=== PATIENT | male | born 1965 | race Caucasian/White ===

== ENCOUNTER → 2024-02-26 | Outpatient (CLI) | payer OTHER, SELFPAY ==
--- NOTE | 2024-02-26 09:18 | NM_ITS ---
CLINICAL: 58-year-old male with history of renal cell carcinoma. WHOLE BODY 99m Tc MDP RADIONUCLIDE BONE SCINTIGRAPHY COMPARISON: None available FINDINGS: Following the intravenous administration of 26.4 mCi of 99m Tc MDP, whole body bone images reveal: 1. Increased radiotracer distribution is defined in the acromioclavicular and sternoclavicular compartments of both shoulders, the posterior compartment of both ankles, the right forefoot involving the first metatarsal-phalangeal articulation, the right elbow, the medial tibial compartment of the right knee and apparent patellofemoral compartment of the left knee. 2. Enhanced uptake is noted in the left proximal femoral diaphysis, the distal right femoral diaphysis, the proximal-left mid tibial diaphysis likely representing previous trauma-fracture. Facilitated uptake is noted in the lateral femoral component of the visualized left knee arthroplasty. 3. The remaining skeletal structures are scintigraphically unremarkable with normal-appearing renal images and urinary bladder activity identified. NM/Bone Scan Whole Body IMPRESSION: 1. The increase in tracer uptake defined in the bilateral shoulder and ankle articulations, the right forefoot, the right elbow, the medial tibial compartment of the right knee and patellofemoral compartment of the left knee (in the absence of apparent orthopedic hardware placement) is most consistent with degenerative arthritis. 2. Facilitated radiopharmaceutical distribution defined in the left proximal and right distal femoral diaphysis, the left proximal-mid tibial diaphysis likely represents previous trauma-fracture. Plain film radiography correlation may be of benefit. 3. There is no definitive scintigraphic evidence of diffuse axial skeletal metastatic disease on the present examination. Electronically Signed: Thee Torrez DO at 9:20 EDT ,
== END | disposition home or self-care (01) ==
LOC: NM 09:14
PROVIDERS: PCP Registered Nurse; Referring Provider Internal Medicine Hematology & Oncology; Visit Provider Internal Medicine Hematology & Oncology
DX: N28.89 Other specified disorders of kidney and ureter (principal)
CPT/HCPCS: 78306; A9503

== ENCOUNTER → 2024-02-28 | Outpatient (CLI) | payer OTHER, SELFPAY ==
--- NOTE | 2024-02-28 08:23 | CT_ITS ---
STUDY: CT CHEST, ABDOMEN T PELVIS WITH CONTRAST REASON FOR EXAM: Male, 58 years old. STAGING KIDNEY CANCER IV CONTRAST ONLY RADIATION DOSAGE (If Supplied By Facility): CTDIvol = ( 23.93 ) mGy, DLP = ( 2617.34 ) mGycm TECHNIQUE: Transaxial imaging was performed following intravenous administration of IV 100mL Isovue-370. Multiplanar coronal and sagittal images were reformatted. Individualized dose optimization techniques were used for this CT. COMPARISON: Comparison is made with prior outside CT scan abdomen and pelvis dated February 05, 2024. FINDINGS: CHEST There is a 2.6 mm noncalcified nodule in the peripheral lateral aspect of the left lower lobe as seen on axial image #97. There is no demonstrated pleural abnormality. Sternal cerclage wires and vascular clips are present from a prior sternotomy and coronary artery bypass graft procedure (CABG). Coronary artery calcification. Normal mediastinum. Normal hilar regions. Normal unenhanced pulmonary arteries. Normal aorta arch and descending thoracic aorta. There are multi-level degenerative changes of the thoracic spine. ABDOMEN There is decreased attenuation of the liver consistent with steatosis. Mild hepatomegaly. Normal gallbladder and extrahepatic biliary system. Borderline splenomegaly. Normal pancreas. Normal bilateral adrenal glands. There is a 10.1 cm x 8.8 cm x 8.5 cm cyst in the upper pole of the right kidney. This also evidence of a 8.7 cm x 6.9 similar cyst in the lateral inferior pole of the right kidney. There is a nonobstructive 9.4 mm calculus in the midpole calyx of the right kidney as well as a 4 mm calculus in the lower pole calyx of the right kidney. There is a 3.5 cm x 3.6 cm x 3.1 cm heterogeneous enhancing mass in the anterior upper midportion of the left kidney. Nonobstructive calculus in the lower pole of the left kidney measuring 8.4 mm. Normal visualized stomach. Normal small intestine. There are scattered colonic diverticula consistent with diverticulosis. The appendix is visualized and appears normal. There is scattered atherosclerotic calcification of the abdominal aorta, without a demonstrated aneurysm. Normal inferior vena cava. Normal retroperitoneum. Normal abdominal wall. There are mild degenerative changes of the visualized lumbar spine. PELVIS Normal urinary bladder. Prostatic enlargement with calcification. The prostate measures 4.3 cm x 5.5 cm. This causes indentation of the bladder base. Prostatic calcifications are seen. Normal visualized small intestine. Normal visualized colon. There is no pelvic fluid. There is no pelvic lymphadenopathy or mass lesion. Normal visualized pelvic arteries. CT/CT Chest, Abd, Pel w/Contrast IMPRESSION: Mild hepatomegaly and fatty infiltration of the liver. Bilateral renal cysts and nonobstructive intrarenal calculi. 3.5 cm x 3.6 x 3.1 cm heterogeneous enhancing mass in the anterior midportion of the left kidney suggestive of a neoplastic process. Electronically Signed: Yaniv Valdivia MD at 12:38 EDT ,
== END | disposition home or self-care (01) ==
LOC: CT 08:22
PROVIDERS: PCP Registered Nurse; Referring Provider Internal Medicine Hematology & Oncology; Visit Provider Internal Medicine Hematology & Oncology
DX: N28.89 Other specified disorders of kidney and ureter (principal)
CPT/HCPCS: 71260; 74177; Q9967

== ENCOUNTER → 2024-12-31 | Outpatient (CLI) | payer OTHER, SELFPAY ==
--- NOTE | 2024-12-31 08:34 | VDLE_ITS ---
Reason For Study Reason For Study: Swelling RLE RIGHT LEFT CFV is compressible, spontaneous, phasic, competent CFV is compressible, spontaneous, phasic, competent, and demonstrates normal augmentation. and demonstrates normal augmentation. Rt FV prox/mid is compressible Rt FV distal and Rt PopV are partially compressible with bright intraluminal echoes consistent with chronic DVT Rt T/P Trunk is Dilated and NON COMPRESSIBLE Rt GSV in the thigh was harvested for CABG. PTV is compressible. RT PerV is compressible. Procedure This is a venous duplex using B-mode, color flow and spectral Doppler. Exam performed in department. A preliminary report was called and/or faxed to Dr. Winkler's Office. VL/Venous Duplex US, Unilateral Interpretation Summary Right leg with chronic DVT distal femoral and popliteal vein. TP trunk dilated and more acute DVT. GSV harvested. Ordering Physician: Kervin Winkler Referring Physician: Mai Alonso Performed By: Meron An RDCS, RVT
--- NOTE | 2024-12-31 08:34 | AAVD_ITS ---
Reason For Study Reason For Study: CAD, PVD Inferior Vena Cava Proximal inferior vena cava measures 1.50cm x 2.84 cm. in the cross-sectional axis. Proximal inferior vena cava measures 1.80 cm. in the longitudinal axis. Mid inferior vena cava measures 1.64cm x 3.06 cm. in the cross-sectional axis. Mid inferior vena cava measures 1.78 cm. in the longitudinal axis. Distal inferior vena cava measures 1.66cm x 2.89 cm. in the cross-sectional axis. Distal inferior vena cava measures 1.61 cm. in the longitudinal axis. The inferior vena cava has spontaneous, phasic flow throughout. Left Common Iliac Vein Left common iliac vein measures 2.81cm x 1.21 cm. in the cross-sectional axis. Left common iliac vein measures 2.24 cm. in the longitudinal axis. The left common iliac vein has spontaneous, phasic flow throughout. Right Common Iliac Vein Right common iliac vein measures 1.14cm x 3.35 cm. in the cross-sectional axis. Right common iliac vein measures 1.27 cm. in the longitudinal axis. The right common iliac vein has spontaneous, phasic flow throughout. Procedure Aorta IVC Iliac vasculature or bypass grafts 26818. Technically difficult study due to patient body habitus. Exam performed in department. VL/Abd Aortic/IVC Duplex scan Interpretation Summary Normall flow and no DVT IVC and bilateral iliac veins. Ordering Physician: Kervin Winkler Referring Physician: Mai Alonso Performed By: Meron An, DAVIDCS, RVT
== END | disposition home or self-care (01) ==
PROVIDERS: PCP Registered Nurse; Referring Provider Surgery Vascular Surgery; Visit Provider Surgery Vascular Surgery
DX: M79.89 Other specified soft tissue disorders (principal); I82.491 Acute embolism and thrombosis of other specified deep vein of right lower extremity; E11.51 Type 2 diabetes mellitus with diabetic peripheral angiopathy without gangrene; Z95.1 Presence of aortocoronary bypass graft; I10 Essential (primary) hypertension
CPT/HCPCS: 93971; 93978